=== PATIENT | female | born 1990 | race African-American/Black ===

== ENCOUNTER 2024-08-23 14:25 | Emergency (ER) | payer OTHER ==
[~2024-08-23] VITALS: Ht 162.6 cm; Wt 79.0 kg
[2024-08-23 14:54] VITALS: O2SAT 100
[2024-08-23 16:55] VITALS: BP 128/80; PULSE 105; RESP 18; TEMP 36.9; O2SAT 100
== END 2024-08-23 16:56 | disposition home or self-care (01) ==
LOC: ER 14:25
DX: S63.253A Unspecified dislocation of left middle finger, initial encounter (principal); X58.XXXA Exposure to other specified factors, initial encounter; Y93.61 Activity, american tackle football; Y92.89 Other specified places as the place of occurrence of the external cause; Y99.8 Other external cause status
CPT/HCPCS: 26770; 73130; 73140; 99152; 99285